=== PATIENT | female | born 1995 | race Hispanic/Latino ===

== ENCOUNTER → 2025-01-10 15:06 | Outpatient (CLI) | payer OTHER, SELFPAY ==
[2025-01-10 18:42] LABS: HCG Quantitative /Beta subunit 38.13 mIU/mL
== END ==
LOC: LAB 15:06
PROVIDERS: PCP Family Medicine; Visit Provider Family Medicine
DX: O46.90 Antepartum hemorrhage, unspecified, unspecified trimester (principal)
CPT/HCPCS: 84702

== ENCOUNTER → 2025-01-13 08:01 | Outpatient (CLI) | payer OTHER, SELFPAY ==
[2025-01-13 19:31] LABS: HCG Quantitative /Beta subunit 10.59 mIU/mL
== END ==
PROVIDERS: PCP Family Medicine; Visit Provider Family Medicine
DX: O46.90 Antepartum hemorrhage, unspecified, unspecified trimester (principal)
CPT/HCPCS: 84702

== ENCOUNTER → 2025-02-21 08:55 | Outpatient (CLI) | payer OTHER, SELFPAY | PROVIDERS: PCP Family Medicine; Visit Provider Chiropractor | DX: R30.0 Dysuria (principal) | CPT/HCPCS: 87077; 87086; 87186 ==